=== PATIENT | male | born 2000 | race African-American/Black ===

== ENCOUNTER 2020-01-10 15:27 | Emergency (ER) | payer OTHER ==
[~2020-01-10] VITALS: Ht 157.5 cm; Wt 45.4 kg
--- NOTE | 2020-01-10 15:43 | NUR ---
Dr. Nickerson at bedside for MSE
--- NOTE | 2020-01-10 15:46 | NUR ---
Patient discharged to home in stable condition. Written and verbal after care instructions given. Patient verbalizes understanding of instructions. Stressed follow up or return to ER for worsening s/s. Patient ambulated with steady gait. NAD noted
[2020-01-10 15:48] VITALS: BP 124/65
== END 2020-01-10 15:46 | disposition home or self-care (01) ==
LOC: ER 15:31
DX: B37.2 Candidiasis of skin and nail (principal); J45.909 Unspecified asthma, uncomplicated; Z88.1 Allergy status to other antibiotic agents; Z91.013 Allergy to seafood
CPT/HCPCS: A4663

== ENCOUNTER 2021-03-18 13:47 | Emergency (ER) | payer OTHER ==
[~2021-03-18] VITALS: Ht 160 cm; Wt 45.4 kg
[2021-03-18] MEDS ORDERED: DOCU100C36 PO (14:27)
[2021-03-18] MEDS ORDERED: POLY17PO4 PO (14:27)
--- NOTE | 2021-03-18 14:27 | NUR ---
PT IS IN ROOM #2A. DR DOYLE EVALUATED THE PT.
--- NOTE | 2021-03-18 14:35 | NUR ---
PT WAS D/C'd TO HOME. D/C INSTRUCTIONS GIVEN TO THE PT BY DR DOYLE.
[2021-03-18 14:36] VITALS: BP 121/68
== END 2021-03-18 14:36 | disposition home or self-care (01) ==
LOC: ER 13:47
DX: K60.2 Anal fissure, unspecified (principal); J45.909 Unspecified asthma, uncomplicated; Z88.0 Allergy status to penicillin; Z91.013 Allergy to seafood
CPT/HCPCS: A4663